=== PATIENT | male | born 1955 | race Caucasian/White ===

== ENCOUNTER 2017-10-28 20:27 | Inpatient (IN) | payer OTHER ==
[~2017-10-28] VITALS: Ht 175.3 cm; Wt 115.2 kg
[~2017-10-28 20:27] MED LIST: ZESTRIL10 MG; ZOFRAN ODT4 MG PO
[2017-10-28 20:35] VITALS: BP 117/75
[2017-10-28] MEDS ORDERED: FLOMAX0.4 MG PO (20:38)
[2017-10-28] MEDS ORDERED: GLUCOSAMINE HC500 MG PO (20:38)
[2017-10-28] MEDS ORDERED: FISH OIL 1,001000 M2 PO (20:38)
[2017-10-28] MEDS ORDERED: UNICOMPLEX M TA1 TA1 PO (20:39)
[2017-10-28 21:05] LABS: ABSOLUTE BASOPHILS 0.1 thou/uL (0.0-0.2); ABSOLUTE EOSINOPHILS 0.2 thou/uL (0.0-0.7); ABSOLUTE LYMPHOCYTES 2.9 thou/uL (0.8-5.3); ABSOLUTE MONOCYTES 0.7 thou/uL (0.0-1.2); BASOPHILS 0.9 %; EOSINOPHILS 2.7 %; HEMATOCRIT 42.8 % (42.0-52.0); HEMOGLOBIN 14.5 gm/dL (14.0-18.0); MCH 31.7 pg (26.0-34.0); MCHC 33.8 g/dL (28.0-37.0); MCV 93.8 fL (80.0-100.0); MONOCYTES 8.8 %; MPV 8.1 fl. (7.2-11.1); NUCLEATED RBCS 0 /100WBC; PLATELET COUNT* 246 thou/uL (150-400); POLYS 50.6 %; RBC 4.56 mil/uL (4.50-6.00); RDW-CV 12.9 % (10.5-14.5); WBC 7.9 thou/uL (4.0-11.0)
[2017-10-28 21:12] LABS: ANION GAP 10 mmol/L (7-16); BUN 27 mg/dL (7-18); CALCIUM 8.3 mg/dL (8.5-10.1); CHLORIDE 108 mmol/L (98-107); CO2 25 mmol/L (21-32); CREATININE 0.9 mg/dL (0.6-1.3); GLUCOSE 121 mg/dL (70-99); POTASSIUM 3.9 mmol/L (3.5-5.1); SODIUM 143 mmol/L (136-145)
[2017-10-28 21:19] LABS: ALBUMIN 3.7 g/dL (3.4-5.0); ALKALINE PHOSPHATASE 75 U/L (46-116); SGOT 20 U/L (15-37); SGPT 37 U/L (30-65); TOTAL BILIRUBIN 0.3 mg/dL (<0.1-1.0); TOTAL PROTEIN 6.7 g/dL (6.4-8.2); TROPONIN-I LEVEL <0.06 ng/mL (<0.06)
[2017-10-28 22:19] VITALS: BP 105/67
[2017-10-29] VITALS: BP 106/67
[2017-10-29 03:30] VITALS: BP 96/66
--- NOTE | 2017-10-29 05:44 | NUR ---
END SHIFT: PT RESTED WELL. NO COMPLAINTS, NO PAIN. NO SOA- ON RA. AWAITING CARDS CONS. SAFETY PRECAUTIONS IN PLACE. CALL LIGHT IN REACH. PERFORMED HOURLY ROUNDING. WILL CONT TO MONITOR.
[2017-10-29 08:00] VITALS: BP 114/74
[2017-10-29 11:30] VITALS: BP 117/73
--- NOTE | 2017-10-29 12:10 | NUR ---
RECEIVED REPORT FROM PANCHO WILLOUGHBY. ASSUMED CARE OF PT AROUND 0730. PT A&O X4. VSS. O2 SAT 98% ON RA. DIESEL ENGINEER IN PLACE TRACING SR. AM ASSESSMENT AND VITALS COMPLETED CHARTED. IV TO RIGHT AC INTACT AND SALINE LOCKED. PT DENIES PAIN OR DISCOMFORT SO FAR THIS SHIFT. PT INFORMED OF PLAN OF CARE. PT COMMUNICATES UNDERSTANDING. PT TO HAVE ECHO, AND IF NORMAL PT MAY BE ABLE TO DC THIS AFTERNOON PER CARDIOLOGY. PT CURRENTLY RESTING IN BED. AT BEDSIDE. LOW FALL RISK PRECAUTIONS IN PLACE. CALL LIGHT IS WITHIN REACH. HOURLY ROUNDING PERFORMED. WCTM FOR DURATION OF SHIFT.
--- NOTE | 2017-10-29 12:37 | 2DMMODE ---
[place] [address] 2 D/M-MODE ECHOCARDIOGRAM Name: RENA ORTEGA Room: [address] IN [facility]#: [id number] Admission: 10/28/17 Attend Phys: Nick Grajeda Discharge: Date of : 57 Date of Service: 10/29/17 1237 Report #: [id number] THIS REPORT FOR: //name// APPROVED REPORT Study performed: 10/29/2017 10:28:50 EXAM: Comprehensive 2D, Doppler, and color-flow Echocardiogram Patient Location: In-Patient Room #: [facility] Status: routine BSA: 2.29 HR: 63 bpm BP: 114/74 mmHg Rhythm: NSR Other Information Study Quality: Good Indications Dyspnea Palpitations 2D Dimensions LVEF(%): 67.96 (>50%) IVSd: 12.34 (7-11mm) LVOT Diam: 27.11 (18-24mm) LVDd: 43.89 mm PWd: 10.93 (7-11mm) Ascending Ao: 36.91 (22-36mm) LVDs: 27.37 (25-40mm) Aortic Root: 31.54 mm Garcia's LVEF: 67.96 % Volumes Left Atrial Volume (Systole) LA ESV Index: 34.60 mL/m2 Aortic Valve AoV Peak Alfred.: 1.55 m/s AO Peak Gr.: 9.64 mmHg LVOT Max P.08 mmHg AO Mean Gr.: 5.04 mmHg LVOT Mean P.19 mmHg LVOT Max V: 0.88 m/s AO V2 VTI: 29.35 cm LVOT Mean V: 0.49 m/s AMINAH (VTI): 3.41 cm2 LVOT V1 VTI: 17.36 [place] [address] 2 D/M-MODE ECHOCARDIOGRAM Name: RENA ORTEGA Room: [address] IN ..#: [id number] Admission: 10/28/17 Attend Phys: Nick Grajeda Discharge: Date of : 57 Date of Service: 10/29/17 1237 Report #: [id number] E/A Ratio: 1.50 MV Decel. Time: 207.19 ms MV E Max Alfred.: 0.62 m/s MV PHT: 60.09 ms MVA (PHT): 3.66 cm2 TDI E/Lateral E': 4.43 E/Medial E': 6.89 Medial E' Alfred.: 0.09 m/s Lateral E' Alfred.: 0.14 m/s Pulmonary Valve PV Peak Alfred.: 1.47 m/s PV Peak Gr.: 8.68 mmHg Tricuspid Valve TR Peak Gr.: 20.56 mmHg RVSP: 25.00 mmHg Left Ventricle The left ventricle is normal size. There is normal LV segmental wall motion. There is normal left ventricular wall thickness. Left ventricular systolic function is normal. The left ventricular ejection fraction is within the normal range. LVEF is 55-60%. The left ventricular diastolic function is normal. Right Ventricle The right ventricle is normal size. The right ventricular systolic function is normal. Atria The left atrium size is normal. The right atrium size is normal. Aortic Valve Mild aortic valve sclerosis. No aortic regurgitation is present. There is no aortic valvular stenosis. Mitral Valve The mitral valve is normal in structure. Trace mitral regurgitation. No evidence of mitral valve stenosis. Tricuspid Valve The tricuspid valve is normal in structure. Trace tricuspid regurgitation. The RVSP is ___25____ mmHg. Pulmonic Valve The pulmonary valve is normal in structure. [place] [address] 2 D/M-MODE ECHOCARDIOGRAM Name: RENA ORTEGA Room: [address] IN .R.#: [id number] Admission: 10/28/17 Attend Phys: Nick Grajeda Discharge: Date of : 57 Date of Service: 10/29/17 1237 Report #: [id number] valvular regurgitation. Great Vessels The aortic root is normal in size. IVC is normal in size and collapses with >50% inspiration Pericardium There is no pericardial effusion. <Conclusion> The left ventricle is normal size. There is normal left ventricular wall thickness. Left ventricular systolic function is normal. The left ventricular ejection fraction is within the normal range. LVEF is 55-60%. The left ventricular diastolic function is normal. The right ventricle is normal size. The left atrium size is normal. Mild aortic valve sclerosis. No aortic regurgitation is present. There is no aortic valvular stenosis. The mitral valve is normal in structure. Trace mitral regurgitation. The tricuspid valve is normal in structure. Trace tricuspid regurgitation. The RVSP is ___25____ mmHg. IVC is normal in size and collapses with >50% inspiration There is no pericardial effusion. There is normal LV segmental wall motion. <ELECTRONICALLY SIGNED> By: Michele Patel MD, FACC 10/29/17 1237 1237 1237 Michele Patel MD, FACC /INF
--- NOTE | 2017-10-29 13:04 | EKG ---
[place] [address] ELECTROCARDIOGRAM REPORT Name: RENA ORTEGA Room: [address] IN [facility]#: [id number] Admission: 10/28/17 Attend Phys: Franci Vivas Discharge: Date of : 57 Report #: [id number] THIS REPORT FOR: //name// [facility] ED Test Date: 2017-10-28 Test Time: 21:05:41 Pat Name: RENA ORTEGA Department: Room: [place] [address] Gender: M Spanish Speaking Nanny: FREYA : 1955 Requested By: Esther Shepherd Order Number: [id number] MD: Michele Patel Measurements Intervals [place] Rate: 92 P: VT: QRS: 22 QRSD: 86 T: 0 QT: 340 QTc: 421 Interpretive Statements Atrial fibrillation Borderline T abnormalities, inferior leads No previous ECG available for comparison Electronically Signed On 10-29-2017 13:04:32 CDT by Michele Patel [email or web address] <ELECTRONICALLY SIGNED> By: Michele Patel MD, [facility] 10/29/17 1304 2104 04 Michele Patel MD, FACC /EPI
--- NOTE | 2017-10-29 13:05 | EKG ---
[place] [address] ELECTROCARDIOGRAM REPORT Name: RENA ORTEGA Room: [address] IN [facility]#: [id number] Admission: 10/28/17 Attend Phys: Franci Vivas Discharge: Date of : 57 Report #: [id number] THIS REPORT FOR: //name// [facility] ED Test Date: 2017-10-28 Test Time: 21:55:57 Pat Name: RENA ORTEGA Department: Room: Gender: Residential Sales Consultant: [facility] : 1955 Requested By: Esther Shepherd Order Number: [id number] MD: Michele Patel Measurements Intervals [place] Rate: 71 P: 29 [place]: 164 QRS: 24 QRSD: 87 T: 10 QT: 369 QTc: 401 Interpretive Statements Sinus rhythm No previous ECG available for comparison Electronically Signed On 10-29-2017 13:05:07 CDT by Michele Patel [email or web address] <ELECTRONICALLY SIGNED> By: Michele Patel MD, [facility] 10/29/17 1305 2155 2155 Michele Patel MD, FACC /EPI
--- NOTE | 2017-10-29 13:11 | CON ---
[address] [address] CONSULTATION Name: RENA ORTEGA Room: [address] ADM IN [facility].R.#: [id number] Admission: 10/28/17 Attend Phys: Franci Vivas Discharge: Date of : 57 Report #: [id number] THIS REPORT FOR: //name// CC: Abdifatah Grajeda DATE OF SERVICE: 10/29/2017 CARDIOLOGY CONSULTATION The patient in room 224. 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 For the last several weeks to months, he has noted brief episodes where he senses an irregular pulse. He presented yesterday, was noted to have atrial fibrillation with a moderate ventricular response that was noted to be greater than 100 by his nurse at home. He noted mild lightheadedness. There have been no symptoms to suggest systemic embolic phenomenon. He has underlying hypertension, but denies diabetes, congestive heart failure, history of TIA, history of cerebrovascular accident. He has had some vague chest discomfort associated with protracted coughing, which persists. It is not related to exertion or motion or extremes of temperature. He does note mild lightheadedness occasionally associated with the palpitations. His risk factors for coronary artery disease include the aforementioned hypertension. He has a family history of atrial fibrillation and one first-degree relative required placement of a pacemaker for tachybrady syndrome. PAST MEDICAL HISTORY: Related to herniorrhaphy, sinus surgery and vein insufficiency. FAMILY HISTORY: There is no family history of sudden or premature coronary event. SOCIAL HISTORY: The patient is . He is an packer operator automatic. He neither smokes nor drinks. REVIEW OF SYSTEMS: Remarkable for the following positives. RESPIRATORY: He notes a cough related to a recent upper respiratory infection. CARDIOVASCULAR: He notes the recent palpitations, which are periodic with associated mild lightheadedness. MUSCULOSKELETAL: He [place] [address] CONSULTATION Name: RENA ORTEGA Room: [address] IN [facility]#: [id number] Admission: 10/28/17 Attend Phys: Franci Vivas Discharge: Date of : 57 Report #: [id number] EYES: He wears glasses. Remainder of 13-point review of systems is unremarkable. PHYSICAL EXAMINATION: GENERAL: Reveals a modestly overweight, middle-aged male, in no acute distress. VITAL SIGNS: Blood pressure 110/70, pulse rate is 82, respirations are 18 per minute. NECK: Jugular venous pressure is normal. There are no carotid bruits. There is no thyromegaly, no scleral icterus. CHEST: Clear. CARDIAC: Reveals a regular rhythm with a question of S4 gallop, without rubs or murmurs. ABDOMEN: Mildly obese. EXTREMITIES: Without edema with intact femoral, pedal and radial pulses. There are no deformity or arthritic changes. IMPRESSION: 1. Paroxysmal atrial fibrillation. 2. Hypertension. 3. Mild weight excess. 4. Recent upper respiratory infection. RECOMMENDATIONS: 1. Echocardiogram. 2. Given the relatively increased frequency of episodes of paroxysmal atrial fibrillation, I would recommend starting on A1c agent assuming no significant structural heart disease and echocardiogram to be performed today. He has a score and we debated the use of a more potent anticoagulant or aspirin alone. That is to be decided. I will continue lisinopril. Thus, echocardiogram is to be reviewed, and subsequent antiarrhythmic therapy will be initiated after review of that data. Thank you for allowing me to see the patient in cardiovascular assessment. <ELECTRONICALLY SIGNED> By: Michele Patel MD, FACC 10/29/17 1311 0955 1233Michele Patel MD, FACC /nt
--- NOTE | 2017-10-29 15:10 | NUR ---
MET WITH PT TO DISCUSS HOME SITUATION/DC PLANNING. PT LIVES WITH . WORKS AND IS INDEPENDENT AND ACTIVE. PT USES NO EQUIPMENT OR HOME CARE. DENIES DC NEEDS.
[2017-10-29 16:11] VITALS: BP 117/73
[2017-10-29] MEDS ORDERED: FLECAINIDE ACET50 M1 PO (16:28)
[2017-10-29] MEDS ORDERED: CARDIZEM CD180 MG PO (16:30)
[2017-10-29] MEDS ORDERED: ASPIRIN325 PO (16:31)
--- NOTE | 2017-10-29 17:08 | NUR ---
VSS. PT ECHO COMPLETED AND RESULTS REVIEWED BY INJECTION MOLDING SUPERVISOR. CARDIOLOGY HAS SIGNED OFF. PT OKAY TO DISCHARGE PER TELEPHONE ORDER FROM DR CASTILLO. DISCHARGE COMPLETED CHARTED. DISCHARGE SUMMARY GONE OVER WITH PT. PT COMMUNICATES UNDERSTANDING. SCRIPTS GIVEN. CARE NOTES GIVEN. PT AWARE OF FOLLOW UP APPOINTMENTS. IV AND BATTER MIXER HELPER REMOVED. ALL BELONGINGS GATHERED AND READY TO SEND WITH THE PT. PT FINISHING DINNER AT THIS TIME AND THEN WILL BE READY TO GO HOME WITH SPOUSE. CALL LIGHT IS WITHIN REACH. LOW FALL RISK PRECAUTIONS ARE IN PLACE. WCTM UNTIL PT DISCHARGES.
== END 2017-10-29 17:22 | disposition home or self-care (01) | DRG 313 ==
LOC: M.ERS 20:27 → M.TBA-ER 21:47 → M.2W 21:47
PROVIDERS: Nurse Practitioner Family; ADMIT Internal Medicine
DX: R07.89 Other chest pain (principal); I48.0 Paroxysmal atrial fibrillation; I10 Essential (primary) hypertension; E66.9 Obesity, unspecified; R06.09 Other forms of dyspnea; K21.9 Gastro-esophageal reflux disease without esophagitis; Z79.899 Other long term (current) drug therapy; Z82.49 Family history of ischemic heart disease and other diseases of the circulatory system; Z68.37 Body mass index [BMI] 37.0-37.9, adult